=== PATIENT | male | born 1950 | race Caucasian/White ===

== ENCOUNTER → 2023-10-25 13:12 | Outpatient (REF) | payer OTHER, SELFPAY | LOC: RAD 13:12 | PROVIDERS: ATTENDING PHYSICIAN Registered Nurse; FAMILY PHYSICIAN Internal Medicine | DX: M79.89 Other specified soft tissue disorders (principal) | CPT/HCPCS: 93970 ==

== ENCOUNTER → 2024-02-20 08:07 | Outpatient (REF) | payer OTHER, SELFPAY | LOC: HWEVLT 08:07 | PROVIDERS: ATTENDING PHYSICIAN Radiology Vascular & Interventional Radiology | DX: I83.892 Varicose veins of left lower extremity with other complications (principal) | CPT/HCPCS: 36478 ==

== ENCOUNTER → 2024-03-04 14:02 | Outpatient (REF) | payer OTHER, SELFPAY ==
--- NOTE | 2024-03-04 16:03 | W.PN.UPDATE ---
Update Note
Progress Note Update
Pt seen at vein center in followup to LLE produce manager ablation. US shows successful produce manager ablation. There is deep venous thrombosis within a segment of posterior tibial vein. Pt is asymptomatic, has continued to walk one hour per day. Rx Eliquis
5m PO BID, return 1 week for followup US.
Pt discussed flying to [place] this evening. We discussed that there is no clear guidance in research/literature regarding air travel and deep venous thrombosis. Discussed that some physicians advise against and some do not. Suggested that
should he wish to make his trip, should begin rx this afternoon and wear compression stockings.
== END ==
LOC: HWEVLT 14:02
PROVIDERS: ATTENDING PHYSICIAN Radiology Vascular & Interventional Radiology
DX: I83.892 Varicose veins of left lower extremity with other complications (principal)
CPT/HCPCS: 93971

== ENCOUNTER → 2024-03-11 11:34 | Outpatient (REF) | payer OTHER, SELFPAY | LOC: HWEVLT 11:34 | PROVIDERS: ATTENDING PHYSICIAN Radiology Vascular & Interventional Radiology | DX: I83.892 Varicose veins of left lower extremity with other complications (principal) | CPT/HCPCS: 93971 ==

== ENCOUNTER → 2024-03-24 11:30 | Outpatient (REF) | payer OTHER, SELFPAY | LOC: RAD 11:30 | PROVIDERS: ATTENDING PHYSICIAN Radiology Vascular & Interventional Radiology; FAMILY PHYSICIAN Family Medicine | DX: I83.892 Varicose veins of left lower extremity with other complications (principal) | CPT/HCPCS: 93971 ==

== ENCOUNTER → 2024-06-16 14:56 | Outpatient (REF) | payer OTHER, SELFPAY | LOC: HWEVLT 14:56 | PROVIDERS: ATTENDING PHYSICIAN Radiology Vascular & Interventional Radiology | DX: I83.892 Varicose veins of left lower extremity with other complications (principal) | CPT/HCPCS: 93971 ==

== ENCOUNTER → 2024-12-09 08:21 | Outpatient (REF) | payer OTHER, SELFPAY | LOC: RCS 08:21 | PROVIDERS: ATTENDING PHYSICIAN Nurse Practitioner Family | DX: R06.09 Other forms of dyspnea (principal) | CPT/HCPCS: 93005; 93017; 93306 ==

== ENCOUNTER → 2025-01-21 08:51 | Outpatient (REF) | payer OTHER, SELFPAY | LOC: HWEVLT 08:51 | PROVIDERS: ATTENDING PHYSICIAN Radiology Vascular & Interventional Radiology | DX: I83.892 Varicose veins of left lower extremity with other complications (principal) | CPT/HCPCS: 93971 ==

== ENCOUNTER → 2025-01-26 12:34 | Outpatient (REF) | payer OTHER, SELFPAY | LOC: HWEVLT 12:34 | PROVIDERS: ATTENDING PHYSICIAN Radiology Vascular & Interventional Radiology | DX: I83.892 Varicose veins of left lower extremity with other complications (principal) | CPT/HCPCS: 36471 ==